=== PATIENT | female | born 1945 | race Asian ===

== ENCOUNTER → 2018-06-26 | Day surgery (SDC) | payer BC ==
[2018-06-26] VITALS (9 sets, daily range): BP systolic 98–128; BP diastolic 64–87
[~2018-06-26] VITALS: Ht 157.5 cm; Wt 58.1 kg
[~2018-06-26] MED LIST: AMLODIPINE BESY10 MG ORAL; ASPIRIN81 MG ORAL; ATORVASTATIN CA20 MG ORAL; BSS 15ml BTL ONE; BSS 500ml btl ONE; Bupivacaine 0.75% 30ml vial INJ ONE; COLCHICINE0.6 M1 PO; Cyclopentolate 1% Opth Sol 2ml ONE; Dexamethasone 4mg/ml vial ONE; DiphenhydrAMINE 50mg/ml Inj IVP PRN; EPINEPHrine 1mg/1ml Amp ONE; FLURAZEPAM HCL30 MG ORAL; Goniosol 2.5% Opth Soln - 15ml ONE; HYDROCHLOROTHIA25 MG ORAL; Indocyanine Green 25mg Inj INJ SCH; Kenalog-10 5ml Inj ONE; Kenalog-40 1ml Vial ONE; LR 1000ml 1,000 ML IVLG SCH; LR 1000ml ONE; Lidocaine 2% MPF 5ml Vial INJ ONE; METOPROLOL XL PO; Maxitrol Opth Oint 3.5gm ONE; Midazolam 2mg/2ml Inj ONE; NORVASC10 MG ORAL; NS Irrig 1000ml ONE; Norco 5mg/325mg tab ORAL PRN; OSCAL D500 MG PO; Phenylephrine 2.5% Op 2ml Soln ONE; Povidone-Iodine 5% opth solution ONE; Pred Forte 1% Opth Susp 1ml ONE; Sterile Water Irrig 1000ml IRRIG ONE; Tetracaine 0.5% Opth 4ml Soln ONE; fentaNYL 100 mcg/2 mL IV ONE; fentaNYL 100 mcg/2 mL IV PRN
[2018-06-26] MEDS: Cyclopentolate 1% Opth Sol 2ml RIGHT EYE SCH ×3 (10:36→11:18)
[2018-06-26] MEDS: Phenylephrine 2.5% Op 2ml Soln RIGHT EYE SCH ×3 (10:37→11:18)
--- NOTE | 2018-06-26 14:29 | Pre-Procedure Note/Attestation ---
Pre-Procedure Note/Attestation Complete Prior to Procedure Planned Procedure: right Procedure Narrative: ppv/ppl od Indications for Procedure Pre-Operative Diagnosis: retained lens fragments od Attestation I attest that I discussed the nature of the procedure; its benefits; risks and complications; and alternatives (and the risks and benefits of such alternatives ), prior to the procedure, with the patient (or the patient's legal loan servicing representative). I attest that, if there was a reasonable possibility of needing a blood transfusion, the patient (or the patient's legal loan servicing representative) was given the [facility] standardized written summary, pursuant to the [place] Blood Safety Act ([place] Health and Safety Code # 1645, as amended). I attest that I re-evaluated the patient just prior to the surgery and that there has been no change in the patient's H&P, except as documented below: Bryan Liang MD Jun 26, 2018 14:29
--- NOTE | 2018-06-26 15:12 | Anethesia Preoperative Eval ---
Anesthesia Pre-op PMH/ROS General Date of Evaluation: Jun 26, 2018 Time of Evaluation: 14:20 Anesthesiologist: Mike ASA Score: ASA 2 Mallampati Score Class I : Soft palate, uvula, fauces, pillars visible Class II: Soft palate, uvula, fauces visible Class III: Soft palate, base of uvula visible Class IV: Only hard plate visible Mallampati Classification: Class II Surgeon: Vinay Diagnosis: R eye retained lens fragments Surgical Procedure: R eye PPV lens fragments removal Anesthesia History: none Family History: no anesthesia problems Allergies: Coded Allergies: ASPIRIN (Verified Allergy, Severe, STOMACH UPSET , 01/07/16) Medications: see eMAR Patient NPO?: Yes Past Medical History Cardiovascular: Reports: HTN, arrhythmia - A fib; Denies: CAD, [place], valve dz, other Pulmonary: Denies: asthma, COPD, JOVANI, other Gastrointestinal/Genitourinary: Reports: GERD; Denies: CRI, ESRD, other Neurologic/Psychiatric: Denies: dementia, CVA, depression/anxiety, TIA, other Endocrine: Denies: DM, hypothyroidism, steroids, other HEENT: Reports: cataract (L), cataract (R); Denies: glaucoma, APACHE (L), APACHE (R), other Hematology/Immune: Reports: bleeding disorder - anticoagulated; Denies: anemia, DVT, other Musculoskeletal/Integumentary: Reports: OA; Denies: RA, DJD, DDD, edema, other PMH Narrative: as above PSxH Narrative: bilateral cataracts and blepharoplasty Anesthesia Pre-op Phys. Exam Physician Exam Last Vital Signs Date Time Temp Pulse Resp B/P (MAP) Pulse Ox O2 Delivery O2 Flow Rate FiO2 06/26/18 11:04 Room Air 06/26/18 10:42 96.6 89 20 128/87 98 96.6 Constitutional: NAD Neurologic: CN 2-12 intact Cardiovascular: RRR, no M/R/G Respiratory: CTA Gastrointestinal: S/NT/ND Airway Exam Mallampati Score: Class II MO: limited Neck: stif ROM: limited Teeth: missing Dentures: no upper, no lower Anesthesia Pre-op A/P Labs see chart Studies Pre-op Studies: EKG - A fib Risk Assessment & Plan Assessment: ASA 2 Plan: MAC with retrobulbar block Status Change Before Surgery: No Pre-Antibiotics Drug: none Wilberto Mckeon MD Jun 26, 2018 15:12
--- NOTE | 2018-06-26 15:32 | Operative Note - PDOC ---
Operative Note Operative Note Pre-op Diagnosis: retained lens fragments od Procedure: ppv/ppl od Post-op Diagnosis: same as pre-op Operative Findings: consistent w/pre-op dx studies Surgeon: nerissa Anesthesia: local, MAC Specimen: none Complications: none Estimated Blood Loss: none Implant(s) used?: No Bryan Liang MD Jun 26, 2018 15:32
--- NOTE | 2018-06-26 15:39 | Immediate Post-Op Evaluation ---
Immediate Post-Op Evalulation Immediate Post-Op Evalulation Procedure: R eye PPV lens fragments removal Date of Evaluation: Jun 26, 2018 Time of Evaluation: 15:38 IV Fluids: 300 Blood Products: none Estimated Blood Loss: min Urinary Output: none Blood Pressure Systolic: 123 Blood Pressure Diastolic: 68 Pulse Rate: 74 Respiratory Rate: 20 O2 Sat by Pulse Oximetry: 99 Temperature (Fahrenheit): 97.6 Pain Score (1-10): 1 Nausea: No Vomiting: No Complications none Patient Status: awake, patent, none Hydration Status: adequate Wilberto Mckeon MD Jun 26, 2018 15:39
--- NOTE | 2018-06-26 15:41 | 48 Hour Post Anesthesia Eval ---
Post Anesthesia Evaluation Procedure: R eye PPV lens fragments removal Date of Evaluation: Jun 26, 2018 Time of Evaluation: 16:05 Blood Pressure Systolic: 132 0: 74 Pulse Rate: 82 Respiratory Rate: 20 Temperature (Fahrenheit): 97.6 O2 Sat by Pulse Oximetry: 98 Airway: patent Nausea: No Vomiting: No Pain Intensity: 2 Hydration Status: adequate Cardiopulmonary Status: stable Mental Status/LOC: patient returned to baseline Follow-up Care/Observations: n/a Post-Anesthesia Complications: none Follow-up care needed: ready to discharge Wilberto Mckeon MD Jun 26, 2018 15:41
--- NOTE | 2018-06-28 06:45 | Operative Note - Dictated ---
DATE OF OPERATION: 06/26/2018 PREOPERATIVE DIAGNOSIS: Retained lens fragment, right eye. POSTOPERATIVE DIAGNOSIS: Retained lens fragment, right eye. PROCEDURE: Pars plana vitrectomy with pars plana lensectomy with phaco-fragmentation, right eye. PRIMARY SURGEON: Bryan Liang M.D. MECHANICAL SHOVEL OPERATOR: None. ANESTHESIA: Monitored anesthesia care with retrobulbar injection. ESTIMATED BLOOD LOSS: None. COMPLICATIONS: None. INDICATIONS: The patient had retained lens fragments following cataract surgery. After benefits, alternatives, and risks were discussed, an informed consent was signed. DESCRIPTION OF PROCEDURE: The patient was brought to the operating theater and identified. The right eye then received a retrobulbar block using the usual mixture of Marcaine and lidocaine under intravenous sedation with a retrobulbar needle. The right eye was prepped and draped in the usual sterile fashion and a lid speculum was placed. The surgical pause was repeated. Under the operating microscope, a 23-gauge valved trocar/cannula was inserted in the inferotemporal quadrant at a distance 3.5 mm posterior to the limbus using conjunctival displacement in an oblique incision pattern. The infusion line was flushed and ____ and then observed to be in the posterior segment before being turned on. The superonasal and superotemporal cannulas were placed in a similar fashion. The light pipe and vitrectomy cutter were placed into the eye and the enymotion visualization system was brought into view. Core vitrectomy was performed and there was a ____. Peripheral vitrectomy was performed as well. Retained lens fragments both cortical and nuclear were seen lying over the macula. Next, the superotemporal cannula was removed. The conjunctiva opened with [place] scissors and an MVR blade was used to open the sclerotomy to 20-gauge. The phacofragmatome was inserted and using phacofragmentation, ____ fragments were removed. Next, additional vitrectomy was performed. A 360-degree scleral depressed exam was then performed and there were no breaks. Some anterior vitrectomy was performed as well with some cortical material from the anterior segment near the IOL being removed. The IOL was stable and did not move and appear to be very well centered. Next, the instruments were removed from the eye. The sclerotomy was closed with a 7-0 Vicryl suture in a butterfly pattern. The remaining cannulas were removed. The conjunctiva was closed with 6-0 plain gut. The eye was palpated and had a pressure of approximately 10 to 15, which was ideal. Subconjunctival vancomycin and dexamethasone were given infranasal. The lid speculum and drape were removed. Periocular area cleaned. Atropine drop and Maxitrol ointment were placed on the ocular surface and a patch and shield were fixed over the closed lids with tape. The patient was taken to the recovery area in good spirits and then no pain. There were no complications during the surgery and followup was confirmed for tomorrow. Bryan Liang M.D. DR: MARIBEL JOB#: [id number] CC:
== END | disposition home or self-care (01) ==
LOC: SUR 09:55
DX: H59.021 Cataract (lens) fragments in eye following cataract surgery, right eye (principal); Y84.8 Other medical procedures as the cause of abnormal reaction of the patient, or of later complication, without mention of misadventure at the time of the procedure; Y92.89 Other specified places as the place of occurrence of the external cause
CPT/HCPCS: 66850; 67036; J0171; J1100; J2250; J3010; J3370; J3470; J3490; 94003; 94150